=== PATIENT | male | born 1965 | race African-American/Black ===

== ENCOUNTER 2021-07-02 10:07 | Emergency (ER) | payer OTHER, MEDICAID ==
[~2021-07-02] VITALS: Ht 182.9 cm; Wt 73.0 kg
[2021-07-02] MEDS ORDERED: KETOROLAC 60MG/2ML VIAL IM STA (10:52)
[2021-07-02 11:44] VITALS: BP 147/90
[2021-07-02 12:03] LABS: BASOPHILS % 0.9 % (0.0-2.0); EOSINOPHILS % 0.3 % (0.0-5.0); HEMATOCRIT. 33.1 % (42.0-52.0); HEMOGLOBIN. 11.3 g/dL (14.0-18.0); LYMPHOCYTES % 26.3 % (20.0-50.0); MEAN CORPUSCULAR HEMOGLOBIN 30.8 pg (28.0-32.0); MEAN CORPUSCULAR VOLUME 90.2 fL (80.0-94.0); MEAN PLATELET VOLUME 7.8 fl (7.4-10.4); MONOCYTES % 9.5 % (2.0-8.0); PLATELET 249 x1000/uL (130-400); RED BLOOD CELL COUNT 3.67 mill/uL (4.7-6.1); RED CELL DISTRIBUTION WIDTH 16.9 % (11.6-14.6)
[2021-07-02 12:04] LABS: CHLORIDE 105 mEq/L (98-107)
[2021-07-02] MEDS ORDERED: NAPR-681 PO (14:35)
== END 2021-07-02 14:59 | disposition home or self-care (01) ==
LOC: ER 10:07
DX: M25.511 Pain in right shoulder (principal); M19.011 Primary osteoarthritis, right shoulder
CPT/HCPCS: 36415; 71045; 73030; 80053; 83880; 84484; 85025; 93005; 96372; 99285; J1885